=== PATIENT | female | born 1960 | race Caucasian/White ===

== ENCOUNTER → 2018-03-04 | Outpatient (CLI) | payer OTHER ==
[~2018-03-04] MED LIST: LEVO200T5 PO; LIOT5TAB3 PO; OMEP-110 PO
== END | disposition home or self-care (01) ==
LOC: STAR 14:34
PROVIDERS: ATTEND Internal Medicine Gastroenterology
DX: Z02.9 Encounter for administrative examinations, unspecified (principal)

== ENCOUNTER 2018-03-09 06:07 | Day surgery (SDC) | payer OTHER ==
[~2018-03-09] VITALS: Ht 162.6 cm; Wt 120.9 kg
[2018-03-09 06:45] VITALS: BP 154/100
[2018-03-09] MEDS ORDERED: LACTATED RINGERS 1,000 ML IV SCH (06:48)
[2018-03-09] MEDS ORDERED: PROPOFOL 10 MG/ML, 50ML ONE (08:00)
== END 2018-03-09 10:00 | disposition home or self-care (01) ==
LOC: OUT 06:07
PROVIDERS: ATTEND Internal Medicine Gastroenterology
DX: Z12.11 Encounter for screening for malignant neoplasm of colon (principal); K63.5 Polyp of colon; K44.9 Diaphragmatic hernia without obstruction or gangrene; K21.0 Gastro-esophageal reflux disease with esophagitis; K29.70 Gastritis, unspecified, without bleeding; E03.9 Hypothyroidism, unspecified; I10 Essential (primary) hypertension; Z87.891 Personal history of nicotine dependence; Z90.710 Acquired absence of both cervix and uterus; Z98.890 Other specified postprocedural states
CPT/HCPCS: 45380; 45385; 88305; J2704; J7120